=== PATIENT | male | born 1940 | race Caucasian/White ===

== ENCOUNTER 2022-09-28 06:06 | Outpatient (CLI) | payer BC, SELFPAY ==
--- NOTE | 2022-09-28 | US_ITS ---
WS: [id number] RENAL ULTRASOUND HISTORY: CHRONIC KIDNEY DISEASE STAGE 3A COMPARISON: None available. TECHNIQUE: 2-D and color Doppler imaging of the kidney submitted. Right kidney: 11.5 cm x 5.4 cm x 5.1 cm. Normal size kidney. No hydronephrosis. Minimally complex cyst with septation in the lower pole measur es 1.7 x 2.1 x 2.3 cm. Good through transmission. No solid mass. Left kidney: 10.2 cm x 5.0 cm x 6.4 cm. Normal echogenicity with no hydronephrosis or mass. Aorta: Normal. Urinary Bladder: Nondistended. US/US renal BI* [id number] IMPRESSION: 1. No hydronephrosis or solid mass. 2. Complex cyst with septation lower pole RIGHT kidney measures 1.7 x 2.1 x 2. 3 cm. Most likely this is benign. Recommend 6 month ultrasound follow-up of the kidneys to ensure stability.
== END 2022-09-28 06:07 | disposition home or self-care (01) ==
LOC: RAD 06:09
PROVIDERS: Visit Provider Internal Medicine
DX: N18.31 Chronic kidney disease, stage 3a (principal); N28.1 Cyst of kidney, acquired
CPT/HCPCS: 76770

== ENCOUNTER 2024-04-18 14:32 | Outpatient (CLI) | payer BC, SELFPAY ==
--- NOTE | 2024-04-18 14:36 | USCV_ITS ---
Ag Turner Age: 84 Gender: M : 1940 Exam Date: 04/18/2024 14:59 Ordering Phys: Roberto Dooley MD Technologist: [place] [facility] [place]: BP: 140 / 85 HR: 58 Rhythm: Sinus Technical Quality: Adequate MEASUREMENTS (Male / Female) Normal Values 2D ECHO LVOT Diameter 2.0 cm LV Ejection Fraction MOD 4C 66.0 % LV Ejection Fraction MOD 2C 67.6 % LV Ejection Fraction 2C AL 68.2 % LA Diameter 3.8 cm RA Systolic Volume 4C AL 65.6 ml RA Systolic Volume 4C MOD 60.8 ml LA Sys Volume AL 53.3 cm cubed LA Sys Volume Index AL 26.9 cm cubed/m squared Aorta at Sinotubular Diameter 2.3 cm IVC Diameter 2.4 cm M-MODE LA Ao Ratio MM 2.0 AV Cusp Separation MM 1.3 cm DOPPLER AV Peak Velocity 299.7 cm/s LVOT Peak Velocity 145.0 cm/s AV Area Cont Eq vti 1.4 cm squared AV Area Cont Eq pk 1.5 cm squared MV Peak Velocity 101.0 cm/s MV Area PHT 3.6 cm squared Mitral E to A Ratio 0.8 TR Peak Velocity 271.0 cm/s TR Peak Gradient 29.4 mmHg TV Peak E Velocity 87.0 cm/s Right Atrial Pressure 3.0 mmHg Pulmonary Artery Systolic Pressu 32.4 mmHg PV Peak Velocity 109.5 cm/s FINDINGS Left Ventricle Left ventricle is normal size. LV systolic function is normal with EF of 55 to 60%. No regional wall motion abnormalities are seen. Grade 1 diastolic dysfunction Right Ventricle Normal in size and function Right Atrium Normal in size Left Atrium Normal in size Mitral Valve Mitral valve is thickened. Mild mitral regurgitation Aortic Valve Aortic valve is thickened. Moderate aortic stenosis with aortic valve area 1.27 cm squared and mean gradient of 28 mmHg. Mild aortic regurgitation Tricuspid Valve Mild tricuspid regurgitation. Pulmonary artery systolic pressure is normal. Pulmonic Valve Not well-visualized Pericardium Normal Aorta Normal in size IVC Appears to be normal CONCLUSIONS LV systolic function is normal with EF of 55 to 60%. Grade 1 diastolic dysfunction. Mild mitral regurgitation Moderate aortic stenosis. Mild aortic regurgitation Mild tricuspid regurgitation Compared to prior echocardiogram from 2016, patient's aortic stenosis has progressed and is moderate now. Pedro Connors MD (Electronically Signed) Final Date: 02 May 2024 21:44 S
== END 2024-04-18 14:33 | disposition home or self-care (01) ==
LOC: RAD 14:33
PROVIDERS: PCP Family Medicine; Visit Provider Family Medicine
DX: I35.0 Nonrheumatic aortic (valve) stenosis (principal); I50.30 Unspecified diastolic (congestive) heart failure
CPT/HCPCS: 93306

== ENCOUNTER 2025-01-02 04:03 | Emergency (ER) | payer BC, SELFPAY ==
[2025-01-02 04:11] VITALS: BP 129/55; PULSE 54; RESP 20; TEMP 36.6; O2SAT 100; BMI 30.9
--- NOTE | 2025-01-02 04:37 | XRR_ITS ---
PROCEDURE INFORMATION: Exam: XR Left Hip Exam date and time: 01/02/2025 4:46 AM Age: 84 years old Clinical indication: Hip pain; Left hip; Additional info: Left hip pain tonight, no trauma TECHNIQUE: Imaging protocol: Radiologic exam of the left hip. Views: 2 or 3 views hip with pelvis when performed. COMPARISON: US renal BI* [id number] 09/28/2022 6:27 AM FINDINGS: Bones/joints: Mild degenerative changes of the visualized osseous structures considering patient's age. Indeterminate ossific density is appreciated along the lateral aspect of the pelvis approximating the inner pelvic ring cortex. Soft tissues: Unremarkable. Vasculature: Peripheral arterial vascular disease. XR/XR hip LT 2-3V wo/w pel* [id number] IMPRESSION: 1. Indeterminate ossific density projecting adjacent the left lateral pelvic ring cortex. Given left pain recommend CT for further assessment. 2. Otherwise, degenerative findings and peripheral arterial vascular disease.
[2025-01-02] MEDS: ketorolac 30 mg/mL INJ IM (04:57)
--- NOTE | 2025-01-02 05:19 | CTR_ITS ---
PROCEDURE INFORMATION: Exam: CT Pelvis Without Contrast, Skeleton Exam date and time: 01/02/2025 5:26 AM Age: 84 years old Clinical indication: Hip pain; Left hip; Additional info: Left hip pain, indeterminate bony abnormality noted on xray TECHNIQUE: Imaging protocol: Computed tomography of the pelvis without contrast. Exam focused on the skeleton. Radiation optimization: All CT scans at this facility use at least one of these dose optimization techniques: automated exposure control; mA and/or kV adjustment per patient size (includes targeted exams where dose is matched to clinical indication); or iterative reconstruction. COMPARISON: CR (PELVIS, ) 01/02/2025 4:46 AM RADIATION DOSE METRICS: Total DLP (mGy-cm): 407.83 FINDINGS: Intestine: Diverticulosis without evidence of diverticulitis. Vasculature: Diffuse severe atherosclerotic disease. Bones/joints: Diffuse degenerative change of the visualized osseous structures, probable moderate spinal canal stenosis at L4-L5. Soft tissues: Large bowel containing left direct inguinal hernia, mild inflammatory stranding of the adjacent fat seen within the hernia sac. Small bowel containing right direct inguinal hernia. CT/CT pelvis wo con [id number] IMPRESSION: 1. Left direct inguinal hernia containing large bowel with mild inflammatory change of the fat (nonspecific), clinically correlate for reducible hernia. No suggestion of obstruction. 2. Right inguinal hernia containing small bowel without obstruction or inflammatory change. 3. Visualized calcification on the plain film comparison was likely robust atherosclerotic disease.
--- NOTE | 2025-01-02 05:21 | ED_ITS ---
HPI - Extremity Problem General: Chief complaint: Extremity Injury, Lower Stated complaint: L hip & leg Extreme pain Time Seen by Provider: 01/02/25 04:14 Source: patient History of Present Illness: Patient is a 84-year-old gentleman who presents to the ER by POV with complaint of sudden severe pain in his left hip tonight. He states it felt like something was cramping in his left gluteal area and left upper leg. He points to the left posterior hip and thigh as the location of his pain. He states it felt like a charley horse and it was bring him to tears. He states his pain is almost gone at the time of my exam now. He denies any injury or trauma. No fevers or chills. He has had some chronic arthritis but states tonight's pain felt worse than any pain he had experienced before. Patient states his pain was actually somewhat improved with movement. MD Complaint: extremity pain Location: left and lower extremity Associated symptoms: Deny chest pain, fever(s) or rash Related Data Previous Rx's ?Medication ?Instructions ?Recorded cyclobenzaprine 10 mg tablet 10 mg PO BID PRN muscle s pasm #14 01/02/25 tabs Review of Systems Const: Denies: fever(s) or chills Card: Denies: chest pain Resp: Denies: dyspnea GI: Denies: abdominal pain, nausea or vomiting : Denies: flank pain Skin/Breast: Denies: rash Physical Exam Const: COMMON NORMALS: no acute distress, average body habitus, alert and well nourished GENERAL APPEARANCE: cooperative ORIENTATION/CONSCIOUSNESS: Yes awake OTHER: Fairly well-appearing 84-year-old gentleman who appears younger than stated age in no acute distress HENMT: COMMON NORMALS: normocephalic and atraumatic HEAD & SCALP: normocephalic and atraumatic Eye: COMMON NORMALS: conjunctivae normal CONJUNCTIVA: Yes conjunctivae normal Neck/C-Spine: GENERAL: Yes normal visual inspection Resp: COMMON NORMALS: normal respiratory effort, No retractions and No use of accessory muscles Cardio: COMMON NORMALS: regular rhythm and Peripheral pulses 2+ throughout RHYTHM: regular rhythm PERIPHERAL PULSES: Peripheral pulses 2+ throughout GI: COMMON NORMALS: Soft to palpation and non-tender PALPATION: Yes Soft to palpation Extremity: COMMON NORMALS: normal to inspection, full ROM and no pedal edema NARRATIVE EXTREMITY EXAM: Patient has full range of motion of the bilateral hips and knees. No erythema or warmth noted to the hips. Patient has 2+ DP and PT pulses to the bilateral lower extremities. Neuro: COMMON NORMALS: no focal motor deficits SENSORIUM/ORIENTATION: Yes alert Skin: COMMON NORMALS: no rashes or lesions noted GENERAL SKIN EXAM: no rashes or lesions noted Course Vital Signs: Vital signs: Vital Signs Temperature 98 F 01/02/25 04:11 Pulse Rate 53 L 01/02/25 05:40 Respiratory Rate 20 H 01/02/25 04:11 Blood Pressure 129/55 01/02/25 04:11 Pulse Oximetry 52 L 01/02/25 05:40 MDM - Extremity (Nontraumatic) Medical Decision Making Patient is a nontoxic 84-year-old gentleman who presented to the ER with complaint of severe left hip pain that started tonight. He denies any injury or trauma. He states the pain felt like a charley horse on his left hip and thigh region. His pain was quite a bit better on my initial exam. He was given a dose of Toradol and declined any additional pain medicine as he states he was getting mostly better since arrival here. He denies any shooting pains down his leg or description of pain highly suggestive of radiculopathy however that would be a consideration as well such as sciatica. Patient is neurovascular intact and moves bilateral lower extremities without limitation or difficulty. Pelvis and left hip x-ray shows apparently indeterminant ossific density adjacent to the left lateral pelvic ring and radiology recommends CT for further assessment. I did reevaluate the patient and he states he is pretty much completely better. I informed him of his x-ray findings and discussed risk benefits of following up with his PCP to have outpatient CT scan of his pelvis versus go ahead and doing it while he is here. He prefers to go ahead and do it while he is here if it can be done. A CT of the pelvis has been ordered and is pending. If does not have any acute pathology anticipate discharge home with continuation of supportive care Lab Data Radiology Impressions Hip/Pelvis X-Ray 01/02/25 04:37 IMPRESSION: 1. Indeterminate ossific density projecting adjacent the left lateral pelvic ring cortex. Given left pain recommend CT for further assessment. 2. Otherwise, degenerative findings and peripheral arterial vascular disease. Pelvis CT 01/02/25 05:19 IMPRESSION: 1. Left direct inguinal hernia containing large bowel with mild inflammatory change of the fat (nonspecific), clinically correlate for reducible hernia. No suggestion of obstruction. 2. Right inguinal hernia containing small bowel without obstruction or inflammatory change. 3. Visualized calcification on the plain film comparison was likely robust atherosclerotic disease. All radiology interpretation(s) finalized by discharge Discharge Plan Discharge Patient Disposition: Home Clinical Impression: Acute pain of left hip Musculoskeletal leg pain Qualifiers: Laterality: left Qualified Code(s): M79.605 - Pain in left leg Condition: Stable Prescriptions: New cyclobenzaprine 10 mg tablet 10 mg PO BID PRN (Reason: muscle spasm) Qty: 14 0RF Discharge Orders: Discharge ED (Routine); Ordered 01/02/25 Ordered By: Shekhar Delgadillo Referrals: Roberto Dooley MD [Primary Care Provider] - Discharge Diet: Usual diet Discharge Activity: Increase activity as tolerated Patient Instructions: Musculoskeletal Pain (ED), Opioid Safety, Pain Management Activity Restrictions/Additional Instructions: Take medication as directed. You may take Tylenol as needed for pain in addition to your prescription from today. Follow-up with your primary care provider for recheck next week. Return to the ER for any new or worsening symptoms or any other concerns. Print Language: Japanese Coding Level of Care Code ED Work Force Advisor for Luis Fernando Valle
[2025-01-02 05:40] VITALS: PULSE 53; O2SAT 52
[2025-01-02 06:16] VITALS: BP 118/55; PULSE 52; O2SAT 94
== END 2025-01-02 06:18 | disposition home or self-care (01) ==
PROVIDERS: Emergency Provider Student in an Organized Health Care Education/Training Program; PCP Family Medicine
DX: M25.552 Pain in left hip (principal); M79.605 Pain in left leg
CPT/HCPCS: 72192; 73502; 96372; 99284; J1885